=== PATIENT | male | born 1965 | race Caucasian/White ===

== ENCOUNTER 2017-02-02 13:48 | Day surgery (SDC) | payer MEDICARE, OTHER, SELFPAY | END 2017-02-02 16:05 | disposition home or self-care (01) | PROVIDERS: Family Provider Family Medicine; Visit Provider Nurse Anesthetist, Certified Registered | DX: M51.36 Other intervertebral disc degeneration, lumbar region (principal); M47.896 Other spondylosis, lumbar region; M54.06 Panniculitis affecting regions of neck and back, lumbar region | CPT/HCPCS: 64493; 64494; 64495; J1030 ==

== ENCOUNTER → 2017-03-01 14:46 | Outpatient (POV) | payer MEDICARE, OTHER, SELFPAY ==
[2017-03-01 15:03] VITALS: BP 147/71; PULSE 113; RESP 22; TEMP 36.8; O2SAT 99; BMI 57.4
--- NOTE | 2017-03-01 15:13 | P.CONS_ITS ---
[facility] Pain Management SOAP Note Subjective:: This patient is a morbidly obese 51-year-old white male who we are treating for low back pain with lumbar spondylosis. He had 80% relief from medial branch blocks of L4-L5 and L5-S1. We will seek approval for radiofrequency ablation to the same levels. He got good relief for approximately 3 days to 1 week. His pain is now returned. Increased pain with extension. Tenderness over the lower lumbar spine over the facet joints of L4-L5 and L5-S1. Objective:: Alert and oriented ?3 in no acute distress. Tenderness over the lower lumbar spine. Increased pain with extension. Motor strength of the lower extremities is 5/5. There is no gross sensory deficit. Assessment:: Degenerative disc disease of lumbar spine with lumbar spondylosis and facet arthropathy at L4-5 and L5-S1. Plan:: We will seek approval and plan on radiofrequency ablation to the facet joints of L4-L5 and L5-S1 bilateral. We will start left side followed by the right side weeks.
== END ==
PROVIDERS: Family Provider Family Medicine; PCP Family Medicine; Visit Provider Anesthesiology
DX: M47.9 Spondylosis, unspecified (principal)
CPT/HCPCS: 99212

== ENCOUNTER 2017-04-16 10:35 | Day surgery (SDC) | payer MEDICARE, OTHER, SELFPAY ==
[2017-04-16 11:45] VITALS: BP 131/48; PULSE 114; TEMP 36.6; O2SAT 96; BMI 57.6
[2017-04-16 11:53] LABS: POC Glucose,Bedside 237 mg/dL (70-110)
[2017-04-16 12:06] VITALS: BP 153/86; PULSE 95; RESP 20
[2017-04-16 12:07] VITALS: BP 151/76; PULSE 84; RESP 20
--- NOTE | 2017-04-16 12:13 | P.PCN_ITS ---
- Procedure Date: 04/16/17 Time: 12:02 Anesthesiologist:: Car Whitfield MD Complications:: None Pre-procedure Diagnosis:: Degenerative disc disease of lumbar spine with lumbar spondylosis and facet arthropathy at L4-L5 and L5-S1 Post-procedure Diagnosis:: Same Indications for Procedure:: This patient is a morbidly obese 51-year-old white male who we are treating for low back pain with lumbar spondylosis. He got good relief from medial branch blocks at L4-L5 and L5-S1. We will do radiofrequency ablation to the same levels today. We will start with the right side today followed by the left side in 2 weeks. Procedure Details:: Lumbar RFA informed consent was obtained and the risk and benefits of the procedure was explained to the patient. Patient was placed prone on the procedure table. The patient was prepped and draped in sterile fashion. C-arm fluoroscopy was used to view the lumbar spine. The skin and subcutaneous tissues were anesthetized using lidocaine. I placed 20-gauge RF needles into the facet joints of L4 and L5 levels on the right side. We underwent sensory stimulation. There is good sensory stimulation at 0.8 V. We underwent motor stimulation. There is no motor stimulation at 2 V. We then anesthetized these levels with lidocaine and Depo-Medrol. I used a total of 40 mg Depo-Medrol for both levels. I then burned both levels of L4 and L5 facet joint/medial branches on the right side for 60 seconds at 80?C. We underwent 4 hunter again each 1 for 60 seconds at 80?C. Patient tolerated the procedure well with no complication. Plan and Disposition:: We will follow-up with this patient in 2 weeks. We will reevaluate his symptoms at that time. We will plan on RFA to the left-sided facet joints of L4 -L5 and L5-S1.
[2017-04-16 12:27] VITALS: BP 138/59; PULSE 104; RESP 20; TEMP 36.6; O2SAT 94
== END 2017-04-16 12:30 | disposition home or self-care (01) ==
LOC: SC.PAINP 10:36
PROVIDERS: Family Provider Family Medicine; PCP Family Medicine; Visit Provider Anesthesiology
DX: M51.36 Other intervertebral disc degeneration, lumbar region (principal); M47.896 Other spondylosis, lumbar region; M54.06 Panniculitis affecting regions of neck and back, lumbar region; Z79.899 Other long term (current) drug therapy
CPT/HCPCS: 64635; 64636; 82962; J1030; Q9966

== ENCOUNTER 2017-05-14 10:26 | Day surgery (SDC) | payer MEDICARE, OTHER, SELFPAY ==
[2017-05-14 10:39] VITALS: BP 135/50; PULSE 98; RESP 24; TEMP 36.9; O2SAT 96; BMI 57.4
[2017-05-14 11:15] VITALS: BP 155/74; PULSE 98; RESP 18
--- NOTE | 2017-05-14 11:16 | [facility].PMPROC ---
- Procedure Date: 05/14/17 Time: 11:16 Anesthesiologist:: Car Whitfield MD Complications:: None Pre-procedure Diagnosis:: Degenerative disc disease of lumbar spine with lumbar spondylosis and facet arthropathy at L4-5 and L5-S1 Post-procedure Diagnosis:: Same Indications for Procedure:: This patient is a morbidly obese 51-year-old white male who we are treating for low back pain with lumbar spondylosis. He had previous radio frequency ablation to the facet joints of L4-L5 and L5-S1 on the right side 2 weeks ago. He is doing very well from this. He is approximately 80% better. He presents for radio frequency ablation to the same levels of L4-L5 and L5-S1 on the left side today. Procedure Details:: Lumbar RFA informed consent was obtained and the risk and benefits of the procedure was explained to the patient. Patient was placed prone on the procedure table. The patient was prepped and draped in sterile fashion. C-arm fluoroscopy was used to view the lumbar spine. The skin and subcutaneous tissues were anesthetized using lidocaine. I placed 20-gauge RF needles into the facet joints of L4 and L5 levels on the left side. We underwent sensory stimulation. There is good sensory stimulation at 0.8 V. We underwent motor stimulation. There is no motor stimulation at 2 V. We then anesthetized these levels with lidocaine and Depo-Medrol. I used a total of 40 mg Depo-Medrol for both levels. I then burned both levels of L4 and L5 facet joint/medial branches on the left side for 60 seconds at 80?C. We underwent 4 hunter again each 1 for 60 seconds at 80?C. Patient tolerated the procedure well with no complication. Plan and Disposition:: We will follow-up with this patient in 1 month. We will reevaluate his symptoms at that time.
[2017-05-14 11:28] VITALS: BP 145/74; PULSE 88; RESP 18
[2017-05-14 11:34] VITALS: BP 117/55; PULSE 98; RESP 18; O2SAT 95
[2017-05-14 14:07] LABS: POC Glucose,Bedside 179 (70-110)
== END 2017-05-14 11:31 | disposition hospice, home (50) ==
LOC: SC.PAINP 10:27
PROVIDERS: Family Provider Family Medicine; PCP Family Medicine; Visit Provider Anesthesiology
DX: M51.36 Other intervertebral disc degeneration, lumbar region (principal); M47.896 Other spondylosis, lumbar region; M46.86 Other specified inflammatory spondylopathies, lumbar region; E11.9 Type 2 diabetes mellitus without complications
CPT/HCPCS: 64635; 64636; 82962; J1030

== ENCOUNTER 2024-02-28 10:22 | Outpatient (CLI) | payer MEDICARE, OTHER, SELFPAY ==
--- NOTE | 2024-02-28 10:31 | XR_ITS ---
FINAL REPORT CLINICAL HISTORY: right 4th toe ulcer X5 DAYS FINDINGS: RIGHT FOOT 3 views of the right foot were obtained. There is no acute fracture or dislocation. There is no bony erosion. Visualized joint spaces are normally aligned. Soft tissues are unremarkable. IMPRESSION: No acute bony abnormality. Reviewed, Interpreted and Dictated by Mark Henriquez MD Transcribed by Mary Mccray Authenticated and [facility]
== END 2024-02-28 23:59 | disposition home or self-care (01) ==
LOC: RAD 10:26
PROVIDERS: PCP Nurse Practitioner Family; Visit Provider Nurse Practitioner Family
DX: R21 Rash and other nonspecific skin eruption (principal); R20.8 Other disturbances of skin sensation; S91.104A Unspecified open wound of right lesser toe(s) without damage to nail, initial encounter
CPT/HCPCS: 73630